=== PATIENT | male | born 1975 | race Caucasian/White ===

== ENCOUNTER 2019-09-22 20:02 | Emergency (ER) | payer OTHER ==
[2019-09-22 20:20] VITALS: BP 140/70; PULSE 81; TEMP 98; BMI 38.3
[2019-09-22] MEDS ORDERED: SODIUM CHLORIDE 1,000 ML IV ONE (20:39)
[2019-09-22] MEDS ORDERED: morphine CARPU-JECT 4 MG/1 ML DISP.SYRIN IVPUSH ONE (20:39)
[2019-09-22] MEDS ORDERED: morphine SULFATE 4 MG/ML VIAL ONE (21:09)
[2019-09-22 21:21] LABS: HEMATOCRIT 41.3 % (35.4-49); HEMOGLOBIN 14.1 GM/dl (11.7-16.9); MCH 30.6 pg (25.7-33.7); MCHC 34.1 g/dl (32.0-35.9); MEAN CELL VOLUME 89.7 fl (80-96); MEAN PLT VOLUME 8.6 fl (7.5-11.1); PLATELET COUNT 319 K/MM3 (134-434); RDW 12.9 % (11.9-15.9); WHITE BLOOD COUNT 14.7 K/mm3 (4.0-10.8)
[2019-09-22 21:30] LABS: ALBUMIN 3.8 g/dl (3.4-5.0); BILIRUBIN,TOTAL 1.1 mg/dl (0.2-1); CALCIUM 8.6 mg/dl (8.5-10); TOT PROT 6.9 g/dl (6.4-8.2)
[2019-09-22 21:31] LABS: POTASSIUM 4.6 mmol/L (3.5-5.1)
[2019-09-22] MEDS ORDERED: SODIUM CHLORIDE 1,000 ML IV SCH (22:30)
[2019-09-22 22:42] LABS: PLATELET ESTIMATE SLT INCREASE
--- NOTE | 2019-09-22 22:54 | PDOC ---
Documentation entered by Paloma Ba SCRIBE, acting as scribe for Amalia Carmona MD. Amalia Carmona MD: This documentation has been prepared by the urvashiibe, Paloma Ba SCRIBE, under my direction and personally reviewed by me in its entirety. I confirm that the documentation accurately reflects all work , treatment, procedures, and medical decision making performed by me. History of Present Illness - General Chief Complaint: Pain Stated Complaint: ABDOMINAL PAIN TO BACK History Source: Patient Exam Limitations: No Limitations - History of Present Illness Initial Comments: 09/22/19 21:14 The patient is a 44-year-old male who presents to the emergency department with abdominal pain. The patient reports he was wearing a tight belt, and when he coughed, he had an acute onset of mid umbilical pain that radiates bilaterally to the back. The patient reports this happened about 45 minutes [employer]. Denies having prior similar pain. The patient reports hes been having 2 days of generalized abdominal discomfort, associated with subjective fever and body tremors today. Denies urinary symptoms, nausea, vomiting, shortness of breath, chest pain, numbness, or tingling PAST MEDICAL HISTORY: no significant history PAST SURGICAL HISTORY: no significant history FAMILY HISTORY: no pertinent history SOCIAL HISTORY: Pt lives with family and is employed. +1 pack/day smoker. MEDICATIONS: reviewed ALLERGIES: As per nursing notes Review of system: General: No fevers or chills, no weakness, no weight loss HEENT: No change in vision. No sore throat,. No ear pain CardioVascular: No chest pain or shortness of breath Respiratory: No cough, or wheezing. Gastrointestinal: +abdominal pain. no nausea, vomiting, diarrhea or constipation , No rectal bleeding Genitourinary: No dysuria, hematuria, or frequency Musculoskeletal: No joint or muscle pain or swelling Neurologic: No headache, vertigo, dizziness or loss of consciousness Psychiatric: nor depression Skin: No rashes or easy bruising Endocrine: no increased thirst or abnormal weight change Allergic: no skin or latex allergy All other systems reviewed and normal Physical exam: General: Well-nourished well-developed individual, no acute distress HEENT: Throat: Normal, tonsils normal, no erythema or exudate Neck: Supple, no meningeal signs, no lymphadenopathy Eyes :Pupils equal reactive and round, extraocular motion intact Chest: Nontender to palpation Cardiac: S1-S2 normal, regular rate and rhythm, no murmurs rubs or gallops Respiratory: Lungs clear to auscultation bilateral Abdomen: +tender area on palpation supraumbilical area, questionable small non reducible hernia. Extremities: Warm, dry, no cyanosis, clubbing, or edema Skin: No rashes Neuro: Alert and oriented x3, nonfocal exam, grossly intact, normal gait Psych: Normal mood and affect. 21:15 Assessment and plan: This is a 44-year-old male who comes in complaining of acute onset of supraumbilical pain. Patient on exam does have a nonreducible supraumbilical hernia. That is tender. Patient given morphine for the pain Work-up initiated including CBC, comp, and CAT scan of abdomen and pelvis 22:45 Patient reports all of a sudden his pain resolved and his hernia spontaneously reduced. On reexam patient does not have a palpable hernia or any tenderness in the area Patient instructed to wear some abdominal wall support and follow-up with his surgeon. Patient discharged given copy of his CAT scan. Past History - Past Medical History Allergies/Adverse Reactions: Allergies Allergy/AdvReac Type Severity Reaction Status Date / Time Penicillins Allergy Severe Difficulty Verified 09/22/19 20:03 Breathing Home Medications: Ambulatory Orders NK [No Known Home Medication] 09/22/19 - Psycho Social/Smoking Cessation Hx Smoking Status: Yes Smoking History: Current every day smoker Number of Cigarettes Smoked Daily: 20 Hx Alcohol Use: No Drug/Substance Use Hx: No *Physical Exam - Vital Signs Last Vital Signs Temp Pulse Resp BP Pulse Ox 98 F 81 16 140/70 100 09/22/19 20:03 09/22/19 20:03 09/22/19 20:03 09/22/19 20:03 09/22/19 20:03 ED Treatment Course - LABORATORY CBC & Chemistry Diagram: 09/22/19 21:10 09/22/19 21:10 - ADDITIONAL ORDERS Additional order review: Laboratory Results 09/22/19 21:10 Sodium 133 L Potassium 4.6 Chloride 103 Carbon Dioxide 26 Anion Gap 4 L BUN 13.0 Creatinine 1.0 Est GFR (CKD-EPI)AfAm 105.62 Est GFR (CKD-EPI)NonAf 91.13 Random Glucose 121 H Calcium 8.6 Total Bilirubin 1.1 H AST 21 ALT 25 Alkaline Phosphatase 47 Total Protein 6.9 Albumin 3.8 09/22/19 21:10 RBC 4.60 MCV 89.7 MCHC 34.1 RDW 12.9 MPV 8.6 Neutrophils % No Result Required. Lymphocytes % No Result Required. - RADIOLOGY Radiology Studies Ordered: Category Date Time Status ABDOMEN & PELVIS CT WITH CONTR [CT] Stat CT Scan 09/22/19 20:38 Completed - Medications Given in the ED: ED Medications Discontinued Medications Generic Name Dose Route Start Last Admin Trade Name Pa PRN Reason Stop Dose Admin Sodium Chloride 1,000 mls @ 1,000 mls/hr 09/22/19 20:39 09/22/19 21:13 Normal Saline - IV 09/22/19 21:38 1,000 mls/hr .Q1H ONE Administration Morphine Sulfate 4 mg 09/22/19 20:39 09/22/19 21:16 Morphine Injection - IVPUSH 09/22/19 20:40 4 mg ONCE ONE Administration Discharge - Discharge Information Problems reviewed: Yes Clinical Impression/Diagnosis: Resolved abdominal pain Umbilical hernia Qualifiers: Obstruction and gangrene presence: without obstruction or gangrene Qualified Code(s): K42.9 - Umbilical hernia without obstruction or gangrene Condition: Stable Disposition: HOME - Admission No - Follow up/Referral Referrals: Srikanth Ryan MD [Staff Physician] - - Patient Discharge Instructions Additional Instructions: Return to the emergency department immediately with ANY new, persistent or worsening symptoms. Continue any medications as previously prescribed by your physician. You should follow up with your primary doctor as soon as possible regarding today's emergency department visit. . Please make sure your doctor reviews the results of your emergency evaluation. Thank you for coming to the Emergency Department today for your care. It was a pleasure to see you today. Please note that your evaluation is INCOMPLETE until you follow-up with your doctor. - Post Discharge Activity
== END 2019-09-22 23:06 | disposition home or self-care (01) ==
LOC: FER 20:02
PROC: 3E033NZ Introduction of Analgesics, Hypnotics, Sedatives into Peripheral Vein, Percutaneous Approach (ICD-10-PCS; principal; 2019-09-22)
DX: K42.9 Umbilical hernia without obstruction or gangrene (principal); R10.9 Unspecified abdominal pain; Z88.0 Allergy status to penicillin; F17.210 Nicotine dependence, cigarettes, uncomplicated
CPT/HCPCS: 36415; 74177-TC; 80053; 85025; 99282-25; J7030; Q9967